=== PATIENT | female | born 1960 | race Caucasian/White ===

== ENCOUNTER 2024-02-18 02:06 | Emergency (ER) | payer BC ==
[~2024-02-18] VITALS: Ht 165.1 cm; Wt 77.1 kg
[2024-02-18 02:15] VITALS: PULSE 85; RESP 18; TEMP 98.7
[2024-02-18] MEDS: SODIUM CHLORIDE 0.9% 1000ML 1,000 ML IV STA (02:35)
[2024-02-18] MEDS: METHYLPREDNISOLONE SOD SUCC 125 MG/2ML VIAL IV STA (02:35)
[2024-02-18] MEDS: METOCLOPRAMIDE HCL 10 MG/2ML VIAL IV STA (02:37)
[2024-02-18 02:40] LABS: BASOPHILS % 0.2 % (0.0-1.0); EOSINOPHILS % 0.1 % (0.0-6.0); HEMATOCRIT 42.2 % (34.2-44.1); HEMOGLOBIN 13.6 g/dL (12.0-16.0); LYMPHOCYTES % 8.4 % (18.0-39.1); MEAN CORPUSCULAR HEMOGLOBIN 31.5 pg (28-32); MEAN CORPUSCULAR HGB CONC 32.2 g/dL (31-35); MEAN CORPUSCULAR VOLUME 97.7 fL (81-99); MONOCYTES % 8.5 % (4.4-11.3); NEUTROPHILS # (AUTO) 9.9 (2.1-6.9); NEUTROPHILS % 82.6 % (38.7-80.0); PLATELET COUNT 250 x10e3/uL (140-360); RED BLOOD COUNT 4.32 x10e6/uL (3.6-5.1); RED CELL DISTRIBUTION WIDTH 12.6 % (11.7-14.4); WHITE BLOOD COUNT 11.94 x10e3/uL (4.8-10.8)
[2024-02-18] MEDS: KETOROLAC TROMETHAMINE 30 MG/ML VIAL IV STA (02:40)
[2024-02-18] MEDS: DIPHENHYDRAMINE HCL INJ 50 MG/ML VIAL IV STA (02:41)
[2024-02-18] MEDS: ONDANSETRON HCL INJ 2MG/ML 2ML 2 MG/ML VIAL IV STA (02:42)
[2024-02-18 02:53] LABS: ALBUMIN 3.4 g/dL (3.5-5.0); ALBUMIN/GLOBULIN RATIO 0.9 (0.8-2.0); ANION GAP 14.7 mmol/L (8-16); BILIRUBIN,TOTAL 0.4 mg/dL (0.2-1.2); CALCIUM 9.8 mg/dL (8.4-10.2); CREATININE, SERUM 0.73 mg/dL (0.57-1.11); POTASSIUM 3.7 mmol/L (3.5-5.1); TOTAL PROTEIN 7.2 g/dL (6.5-8.1)
[2024-02-18 03:01] LABS: CORONAVIRUS COVID-19 AG NEGATIVE (NEGATIVE); INFLUENZA A AG NEGATIVE (NEGATIVE); INFLUENZA B AG NEGATIVE (NEGATIVE)
[2024-02-18] MEDS ORDERED: ONDANSETRON ODT4 MG PO (03:51)
[2024-02-18] MEDS ORDERED: AZITHROMYCIN250 MG PO (03:51)
[2024-02-18] MEDS ORDERED: AMOX TR-K CLV1 EAC2 PO (03:52)
[2024-02-18] MEDS: ACETAMINOPHEN 1000 MG/100 ML IV STA (04:19)
[2024-02-18] MEDS: ACETAMINOPHEN 325 MG TAB PO STA (04:21)
[2024-02-18] MEDS: PROMETHAZINE 12.5MG/ NACL 0.9% 12.5 MG/50 ML BAG IV ONE (04:27)
[2024-02-18 05:12] VITALS: BP 101/69; O2SAT 99
== END 2024-02-18 04:45 | disposition home or self-care (01) ==
LOC: ER 02:16
DX: R11.2 Nausea with vomiting, unspecified (principal); J02.0 Streptococcal pharyngitis; R51.9 Headache, unspecified; R53.81 Other malaise; E03.9 Hypothyroidism, unspecified
CPT/HCPCS: 36415; 80053; 83518; 85025; 87428; 99284; J0131; J1200; J1885; J2405; J2550; J2765; J2919; J7030